=== PATIENT | female | born 1990 | race Caucasian/White ===

== ENCOUNTER 2022-12-29 08:36 | Outpatient (OUT) | payer BC, SELFPAY ==
--- NOTE | 2022-12-29 08:42 | US_ITS ---
[address] [address] Patient Name: SCOTT GOLDSMITH MRN: [id number] date: 1990 Sex: F Assigned Patient Location: [facility] Current Patient Location: Accession/Order Number: [id number] Exam Date: 12/29/2022 08:41 Report Date: 12/29/2022 10:07 At the request of: MALATHI COLLADO Procedure: US OB BPP w non-stress EXAMINATION: US OB growth, US OB BPP w non-stress HISTORY: GESTATIONAL DIABETES COMPARISON: No relevant comparison available. TECHNIQUE: Ultrasound biophysical profile was performed in the radiology department. Growth ultrasound FINDINGS: GROWTH: position: Cephalic presentation, longitudinal lie Amniotic fluid volume: 13.4 cm, normal. Largest fluid pocket 4.6 cm Heart rate: 141 bpm BPD: 8.3 cm, 33 weeks 3 days, 90% Head circumference: 30.4 cm, 33 weeks 6 days, 74% Abdominal circumference: 20.4 cm, 32 weeks 3 days, 73% Femur length: 6.2 cm, 32 weeks 0 days, 47% Estimated weight: 1990 g, 4 lbs. 6 oz., 70% Clinical age: 31 weeks 4 days Clinical KAMI: 02/26/2023 Ultrasound age: 33 weeks 0 days Ultrasound KAMI: 02/16/2023 BPP: BREATHING MOVEMENTS: 2.0 GROSS BODY MOVEMENTS: 2.0 TONE: 2.0 QUALITATIVE AMNIOTIC FLUID VOLUME: 2.0 PRESENTATION: CEPHALIC HEART RATE: 141.4 bpm H.B./min AMNIOTIC FLUID VOLUME: 13.4 cm cm GESTATIONAL AGE: 31 weeks 4 days CONCLUSION: Total biophysical profile score: 8.0 Normal interval growth Electronically authenticated by: WON SEO Date: 12/29/2022 10:07
--- NOTE | 2022-12-29 08:42 | US_ITS ---
[address] [address] Patient Name: SCOTT GOLDSMITH MRN: [id number] date: 1990 Sex: F Assigned Patient Location: [facility] Current Patient Location: Accession/Order Number: [id number] Exam Date: 12/29/2022 08:42 Report Date: 12/29/2022 10:07 At the request of: MALATHI COLLADO Procedure: US OB growth EXAMINATION: US OB growth, US OB BPP w non-stress HISTORY: GESTATIONAL DIABETES COMPARISON: No relevant comparison available. TECHNIQUE: Ultrasound biophysical profile was performed in the radiology department. Growth ultrasound FINDINGS: GROWTH: position: Cephalic presentation, longitudinal lie Amniotic fluid volume: 13.4 cm, normal. Largest fluid pocket 4.6 cm Heart rate: 141 bpm BPD: 8.3 cm, 33 weeks 3 days, 90% Head circumference: 30.4 cm, 33 weeks 6 days, 74% Abdominal circumference: 20.4 cm, 32 weeks 3 days, 73% Femur length: 6.2 cm, 32 weeks 0 days, 47% Estimated weight: 1990 g, 4 lbs. 6 oz., 70% Clinical age: 31 weeks 4 days Clinical KAMI: 02/26/2023 Ultrasound age: 33 weeks 0 days Ultrasound KAMI: 02/16/2023 BPP: BREATHING MOVEMENTS: 2.0 GROSS BODY MOVEMENTS: 2.0 TONE: 2.0 QUALITATIVE AMNIOTIC FLUID VOLUME: 2.0 PRESENTATION: CEPHALIC HEART RATE: 141.4 bpm H.B./min AMNIOTIC FLUID VOLUME: 13.4 cm cm GESTATIONAL AGE: 31 weeks 4 days CONCLUSION: Total biophysical profile score: 8.0 Normal interval growth Electronically authenticated by: WON SEO Date: 12/29/2022 10:07
== END 2022-12-29 10:24 | disposition home or self-care (01) ==
LOC: US 08:36 → FBC 08:38
PROVIDERS: Visit Provider Obstetrics & Gynecology
DX: O43.113 Circumvallate placenta, third trimester (principal); O24.419 Gestational diabetes mellitus in pregnancy, unspecified control; Z3A.33 33 weeks gestation of pregnancy
CPT/HCPCS: 59025; 76816; 76818

== ENCOUNTER 2023-01-02 08:54 | Outpatient (OUT) | payer BC, SELFPAY | END 2023-01-02 09:04 | disposition home or self-care (01) | LOC: FBCO 08:54 → FBC 08:55 | PROVIDERS: Visit Provider Obstetrics & Gynecology | DX: O99.280 Endocrine, nutritional and metabolic diseases complicating pregnancy, unspecified trimester (principal); Z3A.00 Weeks of gestation of pregnancy not specified | CPT/HCPCS: 59025 ==

== ENCOUNTER 2023-01-05 08:21 | Outpatient (OUT) | payer BC, SELFPAY ==
--- NOTE | 2023-01-05 08:36 | US_ITS ---
[address] [address] Patient Name: SCOTT GOLDSMITH MRN: [id number] date: 1990 Sex: F [place]igned Patient [place] [facility] [place] Location[place] [facility] [place] Accession/Order Number: [id number] Exam Date: 01/05/2023 08:37 Report Date: 01/05/2023 15:57 At the request of: MALATHI COLLADO Procedure: US OB BPP w non-stress EXAMINATION: US OB BPP w non-stress HISTORY: Circumvallate Placenta O43.113 COMPARISON: Ultrasound biophysical 12/29/2022 TECHNIQUE: Ultrasound biophysical profile was performed in the radiology department. BREATHING MOVEMENTS: 2.0 GROSS BODY MOVEMENTS: 2.0 TONE: 2.0 QUALITATIVE AMNIOTIC FLUID VOLUME: 2.0 PRESENTATION: Cephalic HEART RATE: 143.6 bpm bpm. AMNIOTIC FLUID VOLUME: 16.3 cm GESTATIONAL AGE: 32 weeks 4 days CONCLUSION: Total biophysical profile score 8.0. Electronically authenticated by: RODNEY ODELL Date: 01/05/2023 15:57
== END 2023-01-05 09:00 | disposition home or self-care (01) ==
LOC: FBCO 08:21 → FBC 08:22
PROVIDERS: Visit Provider Obstetrics & Gynecology
DX: O43.113 Circumvallate placenta, third trimester (principal); Z3A.32 32 weeks gestation of pregnancy
CPT/HCPCS: 59025; 59412; 76818

== ENCOUNTER 2023-01-09 08:30 | Outpatient (OUT) | payer BC, SELFPAY ==
[2023-01-09 08:54] VITALS: BP 113/72; PULSE 76
== END 2023-01-09 09:17 | disposition home or self-care (01) ==
LOC: FBCO 08:37 → FBC 08:39
PROVIDERS: Visit Provider Obstetrics & Gynecology
DX: O26.90 Pregnancy related conditions, unspecified, unspecified trimester (principal)
CPT/HCPCS: 59025

== ENCOUNTER 2023-01-12 08:44 | Outpatient (OUT) | payer BC, SELFPAY ==
--- NOTE | 2023-01-12 08:45 | US_ITS ---
[address] [address] Patient Name: SCOTT GOLDSMITH MRN: [id number] date: 1990 Sex: F Assigned Patient Location: [facility] Current Patient Location: [facility] [place] Accession/Order Number: [id number] Exam Date: 01/12/2023 08:50 Report Date: 01/12/2023 16:47 At the request of: MALATHI OCLLADO Procedure: US OB BPP w non-stress EXAMINATION: US OB BPP w non-stress HISTORY: Circumvallate Placenta in Third Trimester O43.113 COMPARISON: No relevant comparison available. TECHNIQUE: Ultrasound biophysical profile was performed in the radiology department. FINDINGS: BREATHING MOVEMENTS: 2.0 GROSS BODY MOVEMENTS: 2.0 TONE: 2.0 QUALITATIVE AMNIOTIC FLUID VOLUME: 2.0 PRESENTATION: Cephalic HEART RATE: 142.9 bpm H.B./min AMNIOTIC FLUID VOLUME: 12.3 cm cm GESTATIONAL AGE: 33 weeks 4 days CONCLUSION: Total biophysical profile score: 8.0 Electronically authenticated by: WON SEO Date: 01/12/2023 16:47
[2023-01-12 09:22] VITALS: BP 120/77; PULSE 80
== END 2023-01-12 09:52 | disposition home or self-care (01) ==
LOC: US 08:44 → FBC 08:45
PROVIDERS: Visit Provider Obstetrics & Gynecology
DX: O43.113 Circumvallate placenta, third trimester (principal); Z3A.00 Weeks of gestation of pregnancy not specified
CPT/HCPCS: 59025; 76818

== ENCOUNTER 2023-01-16 08:30 | Outpatient (OUT) | payer OTHER, SELFPAY ==
[2023-01-16 08:49] VITALS: BP 123/69; PULSE 99
== END 2023-01-16 09:19 | disposition home or self-care (01) ==
LOC: FBCO 08:47 → FBC 08:48
PROVIDERS: Visit Provider Obstetrics & Gynecology
DX: O99.280 Endocrine, nutritional and metabolic diseases complicating pregnancy, unspecified trimester (principal); E28.2 Polycystic ovarian syndrome
CPT/HCPCS: 59025

== ENCOUNTER 2023-01-19 08:30 | Outpatient (OUT) | payer OTHER, SELFPAY ==
[2023-01-19 08:51] VITALS: BP 118/74; PULSE 100
--- NOTE | 2023-01-19 09:05 | US_ITS ---
[address] [address] Patient Name: SCTOT GOLDSMITH MRN: [id number] date: 1990 Sex: F Assigned Patient Location: US Current Patient Location: US Accession/Order Number: [id number] Exam Date: 01/19/2023 09:35 Report Date: 01/19/2023 11:10 At the request of: MALATHI COLLADO Procedure: US OB BPP w non-stress EXAMINATION: US OB BPP w non-stress HISTORY: Circumvallate placenta in third trimester O43.113 COMPARISON: Ultrasound biophysical 01/12/2023 TECHNIQUE: Ultrasound biophysical profile was performed in the radiology department. BREATHING MOVEMENTS: 2.0 GROSS BODY MOVEMENTS: 2.0 TONE: 2.0 QUALITATIVE AMNIOTIC FLUID VOLUME: 2.0 PRESENTATION: Cephalic HEART RATE: 139.9 bpm bpm. AMNIOTIC FLUID VOLUME: 15.2 cm GESTATIONAL AGE: 34 weeks 4 days CONCLUSION: Total biophysical profile score 8.0. Electronically authenticated by: RODNEY ODELL Date: 01/19/2023 11:10
== END 2023-01-19 10:00 | disposition home or self-care (01) ==
LOC: US 08:44 → FBC 08:45
PROVIDERS: Visit Provider Obstetrics & Gynecology
DX: O43.113 Circumvallate placenta, third trimester (principal); Z3A.34 34 weeks gestation of pregnancy
CPT/HCPCS: 59025; 76818

== ENCOUNTER 2023-01-23 08:35 | Outpatient (OUT) | payer OTHER, SELFPAY ==
[2023-01-23 08:50] VITALS: BP 117/75; PULSE 93
== END 2023-01-23 09:14 | disposition home or self-care (01) ==
LOC: FBCO 08:42 → FBC 08:42
PROVIDERS: Visit Provider Obstetrics & Gynecology
DX: O99.280 Endocrine, nutritional and metabolic diseases complicating pregnancy, unspecified trimester (principal); E28.2 Polycystic ovarian syndrome
CPT/HCPCS: 59025

== ENCOUNTER 2023-01-26 08:30 | Outpatient (OUT) | payer OTHER, SELFPAY ==
--- NOTE | 2023-01-26 08:39 | US_ITS ---
[address] [address] Patient Name: SCOTT GOLDSMITH MRN: [id number] date: 1990 Sex: F Assigned Patient Location: [facility] Current Patient Location: Accession/Order Number: [id number] Exam Date: 01/26/2023 08:40 Report Date: 01/26/2023 15:49 At the request of: MALATHI COLLADO Procedure: US OB BPP w non-stress EXAMINATION: US OB BPP w non-stress HISTORY: Circumvallate placenta in third trimester O43.113 COMPARISON: Ultrasound biophysical 01/19/2023 TECHNIQUE: Ultrasound biophysical profile was performed in the radiology department. BREATHING MOVEMENTS: 0.0 GROSS BODY MOVEMENTS: 2.0 TONE: 2.0 QUALITATIVE AMNIOTIC FLUID VOLUME: 2.0 PRESENTATION: Cephalic HEART RATE: 153.4 bpm bpm. AMNIOTIC FLUID VOLUME: 13.5 cm GESTATIONAL AGE: 35 weeks 4 days CONCLUSION: Total biophysical profile score 6.0. Electronically authenticated by: RODNEY ODELL Date: 01/26/2023 15:49
--- NOTE | 2023-01-26 08:40 | US_ITS ---
[place] [id number] Patient Name: SCOTT GOLDSMITH MRN: [id number] date: 1990 Sex: F Assigned Patient Location: [facility] Current Patient Location: Accession/Order Number: [id number] Exam Date: 01/26/2023 08:40 Report Date: 01/26/2023 15:54 At the request of: MALATHI COLLADO Procedure: US OB growth EXAMINATION: US OB growth HISTORY: Size inconsistent with dates O26.843 COMPARISON: Ultrasound OB growth 12/29/2022 FINDINGS: Heart Rate: 153.4 bpm Number: 1.0 Position: Cephalic Amniotic Fluid Volume: 13.5 cm Maximum Vertical Pocket: 4.9 cm BIOMETRY: BPD: 9.1 cm cm; 36 weeks 6 days; 87% HC: 32.2 cmcm; 36 weeks 2 days; 36% AC: 33.8 cm cm; 37 weeks 5 days; 97% FL: 6.9 cm cm; 35 weeks 2 days; 37% EFW: 3060.9 grams; 84% FL/AC: 20.4 FL/BPD: 75.7 HC/AC: 1.0 GESTATIONAL AGE: Age by EDC: 35 weeks 4 days KAMI by EDC: 02/26/2023 Age by US: 36 weeks 4 days KAMI by US: 02/19/2023 US/US OB growth IMPRESSION: 1. Single live intrauterine with growth detailed above. 2. Abdominal circumference is at 97th percentile Electronically authenticated by: RODNEY ODELL Date: 01/26/2023 15:54
[2023-01-26 09:32] VITALS: BP 113/68; PULSE 85; RESP 16; TEMP 36.2
[2023-01-26 09:42] VITALS: BP 113/68; PULSE 85; TEMP 36.2
== END 2023-01-26 10:36 | disposition home or self-care (01) ==
LOC: US 08:36 → FBC 08:39
PROVIDERS: Visit Provider Obstetrics & Gynecology
DX: O26.843 Uterine size-date discrepancy, third trimester (principal); O43.113 Circumvallate placenta, third trimester; Z3A.36 36 weeks gestation of pregnancy
CPT/HCPCS: 76816; 76818

== ENCOUNTER 2023-01-30 08:30 | Outpatient (OUT) | payer OTHER, SELFPAY ==
[2023-01-30 08:43] VITALS: BP 125/72; PULSE 82
== END 2023-01-30 09:05 | disposition home or self-care (01) ==
LOC: FBCO 08:37 → FBC 08:38
PROVIDERS: Visit Provider Obstetrics & Gynecology
DX: O26.90 Pregnancy related conditions, unspecified, unspecified trimester (principal)
CPT/HCPCS: 59025

== ENCOUNTER 2023-01-31 20:20 | Outpatient (REF) | payer OTHER, SELFPAY | END 2023-01-31 20:21 | disposition home or self-care (01) | LOC: LAB 20:20 | PROVIDERS: Visit Provider Obstetrics & Gynecology | DX: Z34.93 Encounter for supervision of normal pregnancy, unspecified, third trimester (principal) | CPT/HCPCS: 87081; 87150; 87186 ==

== ENCOUNTER 2023-02-02 08:41 | Outpatient (OUT) | payer OTHER, SELFPAY ==
--- NOTE | 2023-02-02 08:44 | US_ITS ---
[place] [id number] Patient Name: SCOTT GOLDSMITH MRN: [id number] date: 1990 Sex: F Assigned Patient Location: [facility] Current Patient Location: Accession/Order Number: [id number] Exam Date: 02/02/2023 08:45 Report Date: 02/02/2023 16:47 At the request of: MALATHI COLLADO Procedure: US OB BPP w non-stress EXAMINATION: US OB BPP w non-stress HISTORY: Circumvallate placenta in third trimester O43.113 COMPARISON: No relevant comparison available. TECHNIQUE: Ultrasound biophysical profile was performed in the radiology department. FINDINGS: BREATHING MOVEMENTS: 2.0 GROSS BODY MOVEMENTS: 2.0 TONE: 2.0 QUALITATIVE AMNIOTIC FLUID VOLUME: 2.0 PRESENTATION: CEPHALIC HEART RATE: 142.9 bpm H.B./min AMNIOTIC FLUID VOLUME: 17.7 cm cm GESTATIONAL AGE: 36 weeks 4 days CONCLUSION: Total biophysical profile score: 8.0 Electronically authenticated by: WON SEO Date: 02/02/2023 16:47
[2023-02-02 09:16] VITALS: BP 122/76; PULSE 90
== END 2023-02-02 09:42 | disposition home or self-care (01) ==
LOC: US 08:41 → FBC 08:42
PROVIDERS: Visit Provider Obstetrics & Gynecology
DX: O43.113 Circumvallate placenta, third trimester (principal); Z3A.36 36 weeks gestation of pregnancy
CPT/HCPCS: 76818

== ENCOUNTER 2023-02-06 08:30 | Outpatient (OUT) | payer OTHER, SELFPAY ==
[2023-02-06 08:35] VITALS: BP 124/77; PULSE 116
== END 2023-02-06 09:26 | disposition home or self-care (01) ==
LOC: FBCO 08:33 → FBC 08:33
PROVIDERS: Visit Provider Obstetrics & Gynecology
DX: O43.113 Circumvallate placenta, third trimester (principal)
CPT/HCPCS: 59025

== ENCOUNTER 2023-02-09 08:26 | Outpatient (OUT) | payer OTHER, SELFPAY ==
[2023-02-09 08:38] VITALS: BP 131/74; PULSE 90
--- NOTE | 2023-02-09 08:41 | US_ITS ---
[address] [address] Patient Name: SCOTT GOLDSMITH MRN: [id number] date: 1990 Sex: F Assigned Patient Location: [facility] Current Patient Location: Accession/Order Number: [id number] Exam Date: 02/09/2023 09:05 Report Date: 02/09/2023 20:42 At the request of: MALATHI COLLADO Procedure: US OB BPP w non-stress EXAMINATION: US OB BPP w non-stress HISTORY: Circumvallate placenta in third trimester O43.113 COMPARISON: No relevant comparison available. TECHNIQUE: Ultrasound biophysical profile was performed in the radiology department. non-reactive stress testing was performed by nursing staff in the birthing center. FINDINGS: BREATHING MOVEMENTS: 0.0 GROSS BODY MOVEMENTS: 2.0 TONE: 2.0 QUALITATIVE AMNIOTIC FLUID VOLUME: 2.0 PRESENTATION: CEPHALIC HEART RATE: 133.7 bpm H.B./min AMNIOTIC FLUID VOLUME: 14.5 cm cm GESTATIONAL AGE: 37 weeks 4 days CONCLUSION: Total biophysical profile score: 6.0 Electronically authenticated by: WON SEO Date: 02/09/2023 20:42
== END 2023-02-09 09:45 | disposition home or self-care (01) ==
LOC: US 08:26 → FBC 08:27
PROVIDERS: Visit Provider Obstetrics & Gynecology
DX: O43.113 Circumvallate placenta, third trimester (principal); Z3A.37 37 weeks gestation of pregnancy
CPT/HCPCS: 76818

== ENCOUNTER 2023-02-10 08:35 | Outpatient (OUT) | payer OTHER, SELFPAY ==
--- NOTE | 2023-02-10 08:39 | US_ITS ---
[address] [address] Patient Name: SCOTT GOLDSMITH MRN: [id number] date: 1990 Sex: F Assigned Patient Location: [facility] Current Patient Location: Accession/Order Number: [id number] Exam Date: 02/10/2023 08:45 Report Date: 02/10/2023 15:04 At the request of: MALATHI COLLADO Procedure: US OB BPP w non-stress EXAMINATION: US OB BPP w non-stress HISTORY: repeat COMPARISON: Ultrasound biophysical 02/09/2023 TECHNIQUE: Ultrasound biophysical profile was performed in the radiology department. BREATHING MOVEMENTS: 0.0 GROSS BODY MOVEMENTS: 2.0 TONE: 2.0 QUALITATIVE AMNIOTIC FLUID VOLUME: 2.0 PRESENTATION: CEPHALIC HEART RATE: 163.6 bpm bpm. AMNIOTIC FLUID VOLUME: 19.4 cm GESTATIONAL AGE: 37 weeks 5 days CONCLUSION: Total biophysical profile score 6.0. Electronically authenticated by: RODNEY ODELL Date: 02/10/2023 15:04
[2023-02-10 09:31] VITALS: BP 125/82; PULSE 88
== END 2023-02-10 10:03 | disposition home or self-care (01) ==
LOC: FBCO 08:40 → FBC 08:40
PROVIDERS: Visit Provider Obstetrics & Gynecology
DX: Z34.93 Encounter for supervision of normal pregnancy, unspecified, third trimester (principal); Z3A.37 37 weeks gestation of pregnancy
CPT/HCPCS: 59025; 76818

== ENCOUNTER 2023-02-12 12:47 | Outpatient (OUT) | payer OTHER, SELFPAY ==
--- NOTE | 2023-02-12 12:58 | US_ITS ---
[address] [address] Patient Name: SCOTT GOLDSMITH MRN: [id number] date: 1990 Sex: F Assigned Patient Location: [facility] Current Patient Location: [facility] [place] Accession/Order Number: [id number] Exam Date: 02/12/2023 13:05 Report Date: 02/13/2023 15:52 At the request of: SARITA ELIZABETH Procedure: US OB BPP w non-stress EXAMINATION: US OB BPP w non-stress HISTORY: CIRCUMVALLATE PLACENTA COMPARISON: Ultrasound OB biophysical 02/10/2023 TECHNIQUE: Ultrasound biophysical profile was performed in the radiology department. BREATHING MOVEMENTS: 2.0 GROSS BODY MOVEMENTS: 2.0 TONE: 2.0 QUALITATIVE AMNIOTIC FLUID VOLUME: 2.0 PRESENTATION: CEPHALIC HEART RATE: 147.5 bpm bpm. AMNIOTIC FLUID VOLUME: 17.0 cm GESTATIONAL AGE: 38 weeks 0 days CONCLUSION: Total biophysical profile score 8.0. Electronically authenticated by: RODNEY ODELL Date: 02/13/2023 15:52
[2023-02-12 13:41] VITALS: BP 132/80; PULSE 88
== END 2023-02-12 14:00 | disposition home or self-care (01) ==
LOC: US 12:48 → FBC 12:49
PROVIDERS: Visit Provider Obstetrics & Gynecology
DX: O43.113 Circumvallate placenta, third trimester (principal); Z3A.38 38 weeks gestation of pregnancy
CPT/HCPCS: 76818

== ENCOUNTER 2023-02-16 08:30 | Outpatient (OUT) | payer OTHER, SELFPAY ==
--- NOTE | 2023-02-16 08:43 | US_ITS ---
[place] [id number] Patient Name: SCOTT GOLDSMITH MRN: [id number] date: 1990 Sex: F Assigned Patient Location: [facility] Current Patient Location: Accession/Order Number: [id number] Exam Date: 02/16/2023 08:47 Report Date: 02/16/2023 18:45 At the request of: MALATHI COLLADO Procedure: US OB BPP w non-stress EXAMINATION: US OB BPP w non-stress HISTORY: CIRCUMVALLATE PLACENTA IN THIRD TRIMESTER O43.113 COMPARISON: Ultrasound OB biophysical 02/12/2023 TECHNIQUE: Ultrasound biophysical profile was performed in the radiology department. BREATHING MOVEMENTS: 2.0 GROSS BODY MOVEMENTS: 2.0 TONE: 2.0 QUALITATIVE AMNIOTIC FLUID VOLUME: 2.0 PRESENTATION: CEPHALIC HEART RATE: 144.4 bpm bpm. AMNIOTIC FLUID VOLUME: 16.1 cm GESTATIONAL AGE: 38 weeks 4 days CONCLUSION: Total biophysical profile score 8.0. Electronically authenticated by: RODNEY ODELL Date: 02/16/2023 18:45
[2023-02-16 09:28] VITALS: BP 127/76; PULSE 85
== END 2023-02-16 09:58 ==
LOC: US 08:45 → FBC 08:46
PROVIDERS: Visit Provider Obstetrics & Gynecology
DX: O43.113 Circumvallate placenta, third trimester (principal); Z3A.38 38 weeks gestation of pregnancy
CPT/HCPCS: 76818

== ENCOUNTER 2023-02-19 04:55 | Inpatient (IN) | payer OTHER, SELFPAY ==
[2023-02-19] VITALS (65 sets, daily range): BP systolic 83–156; BP diastolic 47–89; PULSE 78–130; RESP 16–18; TEMP 35.9–37.2; O2SAT 97
[2023-02-19 05:28] LABS: Hematocrit 37.8 % (36.0-48.0); Hemoglobin 12.9 g/dL (12.0-16.0); Mean Corpuscular HGB Conc 34.1 g/dL (29.9-35.2); Mean Corpuscular Hemoglobin 28.2 pg (26.7-34.0); Mean Corpuscular Volume 82.7 fL (81.0-99.0); Mean Platelet Volume 11.8 fL (9.5-13.5); Platelet Count 142 10^3/uL (150-450); Red Blood Count 4.57 10^6/uL (4.20-5.40); Red Cell Distribution Width 13.9 % (11.0-15.0); White Blood Count 11.3 10^3/uL (4.0-11.0)
[2023-02-19 05:39] LABS: Amphetamine Screen Urine NEGATIVE (NEGATIVE); Barbiturates Screen Urine NEGATIVE (NEGATIVE); Benzodiazepines Screen Urine NEGATIVE (NEGATIVE); Buprenorphine Screen Urine NEGATIVE (NEGATIVE); Cannabinoid Screen Urine NEGATIVE (NEGATIVE); Cocaine Screen Urine NEGATIVE (NEGATIVE); Methadone Screen Urine NEGATIVE (NEGATIVE); Methamphetamines Screen Urine NEGATIVE (NEGATIVE); Opiate Screen Urine NEGATIVE (NEGATIVE); Oxycodone Screen Urine NEGATIVE (NEGATIVE); Phencyclidine Screen Urine NEGATIVE (NEGATIVE); Tricyclic Antidepressant Urine NEGATIVE (NEGATIVE)
[2023-02-19] MEDS: AMPICILLIN SODIUM 2,000 MG in 0.9 % SODIUM CHLORIDE 100 ML 100 MG IV (05:41)
[2023-02-19] MEDS: 0.9 % SODIUM CHLORIDE 1,000 ML 125 ML IV ×2 (05:41→12:22)
[2023-02-19] MEDS: OXYTOCIN 10 UNIT in 0.9 % SODIUM CHLORIDE 500 ML 6.012 UNIT IV (05:46)
[2023-02-19] MEDS: ONDANSETRON PF 4 MG/2 ML VIAL IV (07:27)
--- NOTE | 2023-02-19 09:33 | P.ON_ITS ---
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 She was prepped and draped in the normal sterile fashion. A Pfannenstiel skin incision was then made 2 cm above the symphysis pubis and carried down to underlying rectus fascia using a Bovie. The fascia was incised in the midline and extended laterally using Morrison scissors. Two Ceci clamps were placed on the superior aspect of the fascia and dissected off the underlying rectus muscles. The same was performed on the inferior aspect as well. The muscles were then in the midline. Perit oneum was identified and entered bluntly. The peritoneum was then extended superiorly and inferiorly with good visualization of the bladder. The bladder blade was inserted. A low transverse incision was made on the patient's uterus and extended laterally digitally. The was then delivered atraumatically after the bladder blade was removed in the cephalic position. The cord was clamped and cut. Cord blood was obtained. The was handed off to awaiting team. The patient's placenta was spontaneously delivered. The uterus was then exteriorized. The uterus was cleared of all clots and debris. The bladder blade was reinserted. The patient's uterine incision was closed using #0 Vicryl in a running lock fashion. Excellent hemostasis was assured. The uterus was then returned to the patient's abdomen. The patient's abdomen was copiously irrigated using warm saline. Peritoneal gutters were cleared of all clots and debris. Again excellent hemostasis was assured. The patient's peritoneum was closed using 3-0 Vicryl in a running fashion. The patient's fascia was closed using #0 Vicryl in a running fashion. The patient's skin was closed using 4-0 Vicryl subcuticularly. The patient tolerated the procedure well. Sponge, lap, and needle counts were correct x2. The patient was taken to the Recovery Room in stable condition. Anesthesia: spinal Surgeon: Hernando Ward Supervisor [employer] Education: DEEPTHI STATON Estimated blood loss (mL): 650 Pathology: other (placenta) Condition: stable Disposition: floor
[2023-02-19] MEDS: AMPICILLIN SODIUM 1,000 MG in 0.9 % SODIUM CHLORIDE 50 ML 100 MG IV (10:30)
[2023-02-19] MEDS: FENTANYL CITRATE/PF 100 MCG/2 ML VIAL EPIDURAL ×2 (10:30→10:35)
[2023-02-19] MEDS: ROPIVACAINE HCL/PF 400 MG/200 ML PREMIX 10 MG EPIDURAL (10:32)
[2023-02-19] MEDS: 0.9 % SODIUM CHLORIDE 1,000 ML 1000 ML IV (11:10)
[2023-02-19] MEDS: EPHEDRINE SULFATE 50 MG/ML VIAL IV (11:11)
[2023-02-19] MEDS: LIDOCAINE HCL 2% PF 100 MG/5 ML VIAL INJ (11:11)
--- NOTE | 2023-02-19 12:38 | PC.NURSE ---
1057 Ephedrine 1 mg given, pt nauseous and vomiting
--- NOTE | 2023-02-19 12:39 | PC.NURSE ---
1122 sve 7 cm 100% -1
--- NOTE | 2023-02-19 12:40 | PC.NURSE ---
1124 ephedrine 2nd dose given, pt again vomiting with blood pressure drop
--- NOTE | 2023-02-19 12:41 | PC.NURSE ---
1142 third dose ephedrine given
--- NOTE | 2023-02-19 12:42 | PC.NURSE ---
1148 sve unchanged, feeling increased
--- NOTE | 2023-02-19 12:43 | PC.NURSE ---
1203 additional dose of ephedrine given
--- NOTE | 2023-02-19 12:45 | PC.NURSE ---
1207 sve done, pt continues to feel increased pressure
--- NOTE | 2023-02-19 12:46 | PC.NURSE ---
1210dr genaro notified of sve per phone
--- NOTE | 2023-02-19 12:47 | PC.NURSE ---
1223 dr lam at bedside and [facility] [place]
--- NOTE | 2023-02-19 12:47 | PC.NURSE ---
1232 16 fr reyes placed for large amount dark yellow urine
--- NOTE | 2023-02-19 16:38 | PM.OBPRCVD ---
Procedure Intrapartal events: None Induction method: artificial rupture of membranes Delivery augmentation: rupture of membranes and pitocin Delivery monitor: external FHT and external uterine Route of delivery: Episiotomy Description: right mediolateral Laceration description: perineal - 2nd degree Delivery repair: Vicryl Estimated blood loss (mL): 250 Anesthesia type: Epidural Disposition: floor Infant Delivery date: 02/19/23 Gender: male presentation: vertex Placental delivery description: Spontaneous cord description: 3 Vessels and Nuchal Cord
[2023-02-19] MEDS: IBUPROFEN 600 MG TABLET PO (18:44)
--- NOTE | 2023-02-19 21:13 | PC.NURSE ---
1919 curriculum writer assisted patient to bathroom for the first time. Tolerated well denies complaints of feeling dizzy or lightheaded. Changed bedding and refreshed water.
[2023-02-20] MEDS: IBUPROFEN 600 MG TABLET PO ×3 (02:28→16:15)
--- NOTE | 2023-02-20 03:55 | PC.NURSE ---
0355: pt calls RN to bedside due to IV coming out. pt explains that she hit the IV on the furniture and the IV came out. RN holds pressure on IV site and inspects IV catheter prior to throwing it in sharps container. IV intact
[2023-02-20 06:08] LABS: Basophils Percent Auto 0.2 % (0.2-2.0); Eosinophils Percent Auto 0.3 % (0.9-7.0); Hematocrit 31.7 % (36.0-48.0); Hemoglobin 10.4 g/dL (12.0-16.0); Immature Granulocytes Abs Auto 0.05 10^3/uL (0.00-0.03); Immature Granulocytes Pct Auto 0.4 % (0.0-0.5); Lymphocytes Absolute Auto 1.8 10^3/uL (1.2-3.8); Lymphocytes Percent Auto 14.1 % (20.5-60.0); Mean Corpuscular HGB Conc 32.8 g/dL (29.9-35.2); Mean Corpuscular Hemoglobin 28.3 pg (26.7-34.0); Mean Corpuscular Volume 86.1 fL (81.0-99.0); Mean Platelet Volume 11.4 fL (9.5-13.5); Monocytes Absolute Auto 0.7 10^3/uL (0.3-0.8); Monocytes Percent Auto 5.5 % (1.7-12.0); Neutrophils Absolute Auto 9.9 10^3/uL (1.4-6.5); Neutrophils Percent Auto 79.5 % (43.0-75.0); Platelet Count 189 10^3/uL (150-450); Red Blood Count 3.68 10^6/uL (4.20-5.40); White Blood Count 12.4 10^3/uL (4.0-11.0)
[2023-02-20 08:37] VITALS: BP 116/60; PULSE 87
[2023-02-20] MEDS: DOCUSATE SODIUM 100 MG CAPSULE PO ×2 (08:42→20:07)
--- NOTE | 2023-02-20 09:58 | PC.NURSE ---
199902/19/23 Up to una ACUNA reviewed, given fresh ice pack and uses home witch dinorah and spray, bedlinens changed
--- NOTE | 2023-02-20 10:02 | PC.NURSE ---
02/19/232199 hand expresses breast milk, RN discusses PCOS and lack of breast changes and pt and RN plan to offer breast, hand express (first 24 hrs then switch to pump), feed any milk achieved from breast then supplement with formula if baby still hungry
--- NOTE | 2023-02-20 13:08 | PC.NURSE ---
LC into room and education on complete. Pt attended BF class prior to delivery. Known DX of PCOS with minimal breast size changes. Did have darkened areola and growth in nipples. Has started given supplemental formula as was not sure how much the baby was getting Reviewed milk making as a process and 4 days post delivery average day of milk coming in Parents prefer to continue offering supplement as this makes them more comfortable. LC to support family choices and support / milk making as parents desire.
[2023-02-20 16:06] VITALS: BP 122/71; PULSE 87
[2023-02-20 16:31] VITALS: RESP 17; TEMP 37
[2023-02-20 18:14] LABS: Basophils Percent Auto 0.4 % (0.2-2.0); Eosinophils Absolute Auto 0.1 10^3/uL (0.0-0.7); Eosinophils Percent Auto 1.2 % (0.9-7.0); Hematocrit 31.1 % (36.0-48.0); Hemoglobin 10.3 g/dL (12.0-16.0); Immature Granulocytes Abs Auto 0.04 10^3/uL (0.00-0.03); Immature Granulocytes Pct Auto 0.4 % (0.0-0.5); Lymphocytes Absolute Auto 1.7 10^3/uL (1.2-3.8); Lymphocytes Percent Auto 17.5 % (20.5-60.0); Mean Corpuscular HGB Conc 33.1 g/dL (29.9-35.2); Mean Corpuscular Hemoglobin 28.1 pg (26.7-34.0); Mean Platelet Volume 11.1 fL (9.5-13.5); Monocytes Absolute Auto 0.6 10^3/uL (0.3-0.8); Monocytes Percent Auto 6.3 % (1.7-12.0); Neutrophils Absolute Auto 7.2 10^3/uL (1.4-6.5); Neutrophils Percent Auto 74.2 % (43.0-75.0); Platelet Count 205 10^3/uL (150-450); Red Blood Count 3.66 10^6/uL (4.20-5.40); Red Cell Distribution Width 14.2 % (11.0-15.0); White Blood Count 9.8 10^3/uL (4.0-11.0)
--- NOTE | 2023-02-20 19:13 | W.PC.ACHO ---
Registration Status: ADM IN Primary Language: Kiswahili Preferred Language: Kiswahili 1911 report given. care relinquished. Active Medications Generic Name Dose Route Start Last Admin Trade Name Freq PRN Reason Stop Dose Admin Acetaminophen 650 mg 02/19/23 16:35 Acetaminophen 325 Mg Tablet PO Q6H PRN Mild Pain Al Hydroxide/Mg Hydroxide 2,400 mg 02/19/23 09:35 Magnesium Hydroxide 2,400 Mg/10 Ml Oral.Susp PO Q6H PRN Dyspepsia Al Hydroxide/Mg Hydroxide 2,400 mg 02/19/23 16:35 Magnesium Hydroxide 2,400 Mg/10 Ml Oral.Susp PO Q6H PRN Dyspepsia Benzocaine/Menthol 1 applic 02/19/23 16:35 02/19/23 20:06 Benzocaine/Menthol 85 Gram Bottle TOPICAL 1 applic DIRECTED PRN Administration Pain Carboprost Tromethamine 250 mcg 02/19/23 05:04 Carboprost Tromethamine 250 Mcg/Ml 1 Ml Vial IM Q15M PRN Bleeding Diphenhydramine HCl 25 mg 02/19/23 09:42 Diphenhydramine Hcl 50 Mg/Ml (1ml) Vial IV Q6H PRN Itching Docusate Sodium 100 mg 02/20/23 09:00 Docusate Sodium 100 Mg Capsule PO BID RONEN Docusate Sodium 100 mg 02/20/23 09:00 02/20/23 08:42 Docusate Sodium 100 Mg Capsule PO 100 mg BID RONEN Administration Ephedrine Sulfate 5 mg 02/19/23 09:42 02/19/23 11:11 Ephedrine Sulfate 50 Mg/Ml Vial IV 5 mg Q5M PRN Administration Blood Pressure - Low Fentanyl Citrate 100 mcg 02/19/23 09:42 02/19/23 10:35 Fentanyl Citrate/Pf 100 Mcg/2 Ml Vial EPIDURAL 100 mcg Q4H PRN Administration Pain Fentanyl Citrate 100 mcg 02/19/23 09:53 02/19/23 10:30 Fentanyl Citrate/Pf 100 Mcg/2 Ml Vial EPIDURAL 100 mcg Q4H PRN Administration Pain Sodium Chloride 1,000 mls @ 125 mls/hr 02/19/23 05:15 02/19/23 12:22 Sodium Chloride 0.9% 1,000 Ml IV 125 mls/hr .Q8H RONEN Administration Oxytocin 10 unit/ Sodium 501 mls @ 6.012 mls/hr 02/19/23 05:15 02/19/23 05:46 Chloride IV 2 milliunit/min Q24H [facility] 6.012 mls/hr Administration 2 MILLIUNIT/MIN Ampicillin 1,000 mg/ Sodium 50 mls @ 100 mls/hr 02/19/23 05:15 02/19/23 10:30 Chloride IV 100 ml/hr Q4H RONEN 100 mls/hr Administration Sodium Chloride 1,000 mls @ 125 mls/hr 02/19/23 09:45 Sodium Chloride 0.9% 1,000 Ml IV .Q8H [facility] Ropivacaine/Sodium Chloride 400 mg in 200 mls @ 6 mls/hr 02/19/23 09:45 02/19/23 10:32 Naropin 0.2% 400 Mg/200 Ml Bag EPIDURAL 10 ml/hr Q24H [facility] 10 mls/hr Administration Ropivacaine/Sodium Chloride 400 mg in 200 mls @ 6 mls/hr 02/19/23 10:00 Naropin 0.2% 400 Mg/200 Ml Bag EPIDURAL Q24H [facility] Ibuprofen 800 mg 02/19/23 09:35 Ibuprofen 400 Mg Tablet PO Q8H PRN Pain Ibuprofen 600 mg 02/19/23 16:35 02/20/23 16:15 Ibuprofen 600 Mg Tablet PO 600 mg Q6H PRN Administration Moderate Pain Ketorolac Tromethamine 30 mg 02/19/23 09:42 Ketorolac Tromethamine 30 Mg/Ml Vial IVP Q6H PRN Pain Lidocaine 5 ml 02/19/23 05:04 Lidocaine Viscous 2% 15 Ml Topical Solution TOPICAL DIRECTED PRN Pain Lidocaine 1 ml 02/19/23 05:04 Lidocaine Hcl 1% 200 Mg/20 Ml Mdv INJ DIRECTED PRN Pain Lidocaine 5 ml 02/19/23 09:42 02/19/23 11:11 Lidocaine Hcl 2% Pf 100 Mg/5 Ml Vial INJ 5 ml Q1H PRN Administration Epidural Methylergonovine Maleate 0.2 mg 02/19/23 05:04 Methylergonovine Maleate 0.2 Mg Tablet PO Q4H PRN Uterine Contractility/Contract Methylergonovine Maleate 0.2 mg 02/19/23 05:04 Methylergonovine Maleate 0.2 Mg/Ml Ampule IM ONCE PRN Uterine Contractility/Contract Misoprostol 600 mcg 02/19/23 05:04 Misoprostol 100 Mcg Tablet PO ONCE PRN Uterine Bleeding Misoprostol 800 mcg 02/19/23 05:04 Misoprostol 100 Mcg Tablet SL ONCE PRN Uterine Bleeding Misoprostol 1,000 mcg 02/19/23 05:04 Misoprostol 100 Mcg Tablet SC ONCE PRN Uterine Bleeding Nalbuphine HCl 10 mg 02/19/23 05:04 Nalbuphine Hcl 10 Mg/Ml Ampule IV Q3H PRN Pain Ondansetron HCl 4 mg 02/19/23 05:04 02/19/23 07:27 Ondansetron Pf 4 Mg/2 Ml Vial IV 4 mg Q6H PRN Administration Nausea And Vomiting Ondansetron HCl 4 mg 02/19/23 05:04 Ondansetron 4 Mg Rapdis Tablet SL Q6H PRN Nausea And Vomiting Ondansetron HCl 4 mg 02/19/23 09:35 Ondansetron Pf 4 Mg/2 Ml Vial IV Q6H PRN Nausea And Vomiting Ondansetron HCl 4 mg 02/19/23 09:35 Ondansetron 4 Mg Rapdis Tablet PO Q6H PRN Nausea And Vomiting Oxycodone/Acetaminophen 2 each 02/19/23 09:35 Oxycodone Hcl/Acetaminophen 5-325 Mg Tablet PO Q4H PRN Pain Oxycodone/Acetaminophen 1 each 02/19/23 09:35 Oxycodone Hcl/Acetaminophen 5-325 Mg Tablet PO Q4H PRN Pain Oxytocin 10 unit 02/19/23 05:04 Oxytocin 100 Unit/10 Ml Vial IM ONCE PRN Uterine Bleeding Senna 17.2 mg 02/19/23 20:00 Sennosides 8.6 Mg Tablet PO QHS PRN Constipation Senna 17.2 mg 02/19/23 20:00 Sennosides 8.6 Mg Tablet PO QHS PRN Constipation Simethicone 80 mg 02/19/23 09:35 Simethicone 80 Mg Tab.Chew PO QID PRN Abdominal Distention Simethicone 80 mg 02/19/23 16:35 Simethicone 80 Mg Tab.Chew PO QID PRN Abdominal Distention Temazepam 15 mg 02/19/23 20:00 Temazepam 15 Mg Capsule PO BEDTIME PRN Sleep Witch Barbara/Glycerin 1 each 02/19/23 16:35 Glycerin/Witch Barbara 1 Each Jar TOPICAL DIRECTED PRN Pain Respiratory Lung sounds [Throughout] clear Pulse Oximetry 97 Oxygen Delivery Method Room Air Cardiology Heart Sounds Regular Renal Bladder Pattern Continent
--- NOTE | 2023-02-20 19:24 | PC.NURSE ---
Patient sitting up in bed, denies any needs at this time.
[2023-02-20] MEDS: ONDANSETRON 4 MG RAPDIS TABLET PO (21:59)
[2023-02-21 00:05] VITALS: BP 118/70; PULSE 85
[2023-02-21] MEDS: IBUPROFEN 600 MG TABLET PO ×2 (00:10→08:40)
[2023-02-21 00:24] VITALS: RESP 16
[2023-02-21 00:33] VITALS: TEMP 36.6
--- NOTE | 2023-02-21 07:13 | W.PC.ACHO ---
Registration Status: ADM IN Primary Language: Estonian Preferred Language: Estonian Active Medications Report given to Marita Gaxiola RN Generic Name Dose Route Start Last Admin Trade Name Freq PRN Reason Stop Dose Admin Acetaminophen 650 mg 02/19/23 16:35 Acetaminophen 325 Mg Tablet PO Q6H PRN Mild Pain Al Hydroxide/Mg Hydroxide 2,400 mg 02/19/23 09:35 Magnesium Hydroxide 2,400 Mg/10 Ml Oral.Susp PO Q6H PRN Dyspepsia Al Hydroxide/Mg Hydroxide 2,400 mg 02/19/23 16:35 Magnesium Hydroxide 2,400 Mg/10 Ml Oral.Susp PO Q6H PRN Dyspepsia Benzocaine/Menthol 1 applic 02/19/23 16:35 02/19/23 20:06 Benzocaine/Menthol 85 Gram Bottle TOPICAL 1 applic DIRECTED PRN Administration Pain Carboprost Tromethamine 250 mcg 02/19/23 05:04 Carboprost Tromethamine 250 Mcg/Ml 1 Ml Vial IM Q15M PRN Bleeding Diphenhydramine HCl 25 mg 02/19/23 09:42 Diphenhydramine Hcl 50 Mg/Ml (1ml) Vial IV Q6H PRN Itching Docusate Sodium 100 mg 02/20/23 09:00 Docusate Sodium 100 Mg Capsule PO BID RONEN Docusate Sodium 100 mg 02/20/23 09:00 02/20/23 20:07 Docusate Sodium 100 Mg Capsule PO 100 mg BID RONEN Administration Ephedrine Sulfate 5 mg 02/19/23 09:42 02/19/23 11:11 Ephedrine Sulfate 50 Mg/Ml Vial IV 5 mg Q5M PRN Administration Blood Pressure - Low Fentanyl Citrate 100 mcg 02/19/23 09:42 02/19/23 10:35 Fentanyl Citrate/Pf 100 Mcg/2 Ml Vial EPIDURAL 100 mcg Q4H PRN Administration Pain Fentanyl Citrate 100 mcg 02/19/23 09:53 02/19/23 10:30 Fentanyl Citrate/Pf 100 Mcg/2 Ml Vial EPIDURAL 100 mcg Q4H PRN Administration Pain Sodium Chloride 1,000 mls @ 125 mls/hr 02/19/23 05:15 02/19/23 12:22 Sodium Chloride 0.9% 1,000 Ml IV 125 mls/hr .Q8H RONEN Administration Oxytocin 10 unit/ Sodium 501 mls @ 6.012 mls/hr 02/19/23 05:15 02/19/23 05:46 Chloride IV 2 milliunit/min Q24H [facility] 6.012 mls/hr Administration 2 MILLIUNIT/MIN Ampicillin 1,000 mg/ Sodium 50 mls @ 100 mls/hr 02/19/23 05:15 02/19/23 10:30 Chloride IV 100 ml/hr Q4H RONEN 100 mls/hr Administration Sodium Chloride 1,000 mls @ 125 mls/hr 02/19/23 09:45 Sodium Chloride 0.9% 1,000 Ml IV .Q8H [facility] Ropivacaine/Sodium Chloride 400 mg in 200 mls @ 6 mls/hr 02/19/23 09:45 02/19/23 10:32 Naropin 0.2% 400 Mg/200 Ml Bag EPIDURAL 10 ml/hr Q24H [facility] 10 mls/hr Administration Ropivacaine/Sodium Chloride 400 mg in 200 mls @ 6 mls/hr 02/19/23 10:00 Naropin 0.2% 400 Mg/200 Ml Bag EPIDURAL Q24H [facility] Ibuprofen 800 mg 02/19/23 09:35 Ibuprofen 400 Mg Tablet PO Q8H PRN Pain Ibuprofen 600 mg 02/19/23 16:35 02/21/23 00:10 Ibuprofen 600 Mg Tablet PO 600 mg Q6H PRN Administration Moderate Pain Ketorolac Tromethamine 30 mg 02/19/23 09:42 Ketorolac Tromethamine 30 Mg/Ml Vial IVP Q6H PRN Pain Lidocaine 5 ml 02/19/23 05:04 Lidocaine Viscous 2% 15 Ml Topical Solution TOPICAL DIRECTED PRN Pain Lidocaine 1 ml 02/19/23 05:04 Lidocaine Hcl 1% 200 Mg/20 Ml Mdv INJ DIRECTED PRN Pain Lidocaine 5 ml 02/19/23 09:42 02/19/23 11:11 Lidocaine Hcl 2% Pf 100 Mg/5 Ml Vial INJ 5 ml Q1H PRN Administration Epidural Methylergonovine Maleate 0.2 mg 02/19/23 05:04 Methylergonovine Maleate 0.2 Mg Tablet PO Q4H PRN Uterine Contractility/Contract Methylergonovine Maleate 0.2 mg 02/19/23 05:04 Methylergonovine Maleate 0.2 Mg/Ml Ampule IM ONCE PRN Uterine Contractility/Contract Misoprostol 600 mcg 02/19/23 05:04 Misoprostol 100 Mcg Tablet PO ONCE PRN Uterine Bleeding Misoprostol 800 mcg 02/19/23 05:04 Misoprostol 100 Mcg Tablet SL ONCE PRN Uterine Bleeding Misoprostol 1,000 mcg 02/19/23 05:04 Misoprostol 100 Mcg Tablet NC ONCE PRN Uterine Bleeding Nalbuphine HCl 10 mg 02/19/23 05:04 Nalbuphine Hcl 10 Mg/Ml Ampule IV Q3H PRN Pain Ondansetron HCl 4 mg 02/19/23 05:04 02/19/23 07:27 Ondansetron Pf 4 Mg/2 Ml Vial IV 4 mg Q6H PRN Administration Nausea And Vomiting Ondansetron HCl 4 mg 02/19/23 05:04 Ondansetron 4 Mg Rapdis Tablet SL Q6H PRN Nausea And Vomiting Ondansetron HCl 4 mg 02/19/23 09:35 Ondansetron Pf 4 Mg/2 Ml Vial IV Q6H PRN Nausea And Vomiting Ondansetron HCl 4 mg 02/19/23 09:35 02/20/23 21:59 Ondansetron 4 Mg Rapdis Tablet PO 4 mg Q6H PRN Administration Nausea And Vomiting Oxycodone/Acetaminophen 2 each 02/19/23 09:35 Oxycodone Hcl/Acetaminophen 5-325 Mg Tablet PO Q4H PRN Pain Oxycodone/Acetaminophen 1 each 02/19/23 09:35 Oxycodone Hcl/Acetaminophen 5-325 Mg Tablet PO Q4H PRN Pain Oxytocin 10 unit 02/19/23 05:04 Oxytocin 100 Unit/10 Ml Vial IM ONCE PRN Uterine Bleeding Senna 17.2 mg 02/19/23 20:00 Sennosides 8.6 Mg Tablet PO QHS PRN Constipation Senna 17.2 mg 02/19/23 20:00 Sennosides 8.6 Mg Tablet PO QHS PRN Constipation Simethicone 80 mg 02/19/23 09:35 Simethicone 80 Mg Tab.Chew PO QID PRN Abdominal Distention Simethicone 80 mg 02/19/23 16:35 Simethicone 80 Mg Tab.Chew PO QID PRN Abdominal Distention Temazepam 15 mg 02/19/23 20:00 Temazepam 15 Mg Capsule PO BEDTIME PRN Sleep Witch Barbara/Glycerin 1 each 02/19/23 16:35 Glycerin/Witch Barbara 1 Each Jar TOPICAL DIRECTED PRN Pain Respiratory Lung sounds [Throughout] clear Lung sounds [Throughout] clear Oxygen Delivery Method Room Air Cardiology Heart Sounds Regular Heart Sounds Regular Bowels Date of Last Bowel Movement 02/20/23 Renal Bladder Pattern Continent Bladder Pattern Continent
[2023-02-21] MEDS: DOCUSATE SODIUM 100 MG CAPSULE PO (08:41)
[2023-02-21 08:43] VITALS: BP 118/74; PULSE 77
[2023-02-21 08:45] VITALS: RESP 16; TEMP 36.7
--- NOTE | 2023-02-21 09:53 | PC.NURSE ---
mother baby care, purple cry and 7 ways to reduce sids videos in for pt to view.
--- NOTE | 2023-02-21 12:34 | P.DS_ITS ---
DS: Providers Provider Date of admission: 02/19/23 04:55 Primary care physician: Non-Staff Physician, Admitting clinician: Hernando Ward Consults: 02/19/23 Consult to Anesthesiology Routine Consulting Provider: Hospitalist Attending physician on discharge: Loida Francois Anticipated date of discharge: 02/21/23 DS: Diagnosis Discharge Diagnosis (1) Normal vaginal delivery: Assessment and plan: CLINICAL EXAM NON FOCAL. NORMAL VSS. DISCHARGE INSTRUCTIONS GIVEN WITH STATED UNDERSTANDING. FOLLOW UP IN SIX WEEKS FOR POST EXAM. PELVIC REST FOR SIX WEEKS. CALL FOR PROBLEM OR CONCERN. GENERAL COVID AND RSV PRECAUTIONS GIVEN OB - DS: Summary Hospital Course Hospital Course: UNCOMPLICATED Complications complications: none Infant Delivery method: spontaneous vaginal delivery Gender: male Discharge plan: home Status at Discharge Functional status at discharge: independent ambulation Overall status at discharge: patient is back to baseline Time Spent with Patient Time attestation: Total time spent providing and/or coordinating discharge services: Time spent: less than 30 minutes Specific discharge activities: PELVIC REST SIX WEEKS, ONLY LIFT BABY, NO SWIMMING FOR 4 WEEKS, CALL FOR PROBLEM OR CONCERN, SPORTS BRA 06/02 WITH NO BREAST STIMULATION BY HAND OR SHOWER IF NOT BREAST FEEDING Exam Constitutional Vital Signs, click to edit/add: Last Vital Signs Temp 98.1 F 02/21/23 08:45 Pulse 77 02/21/23 08:43 Resp 16 02/21/23 08:45 BP 118/74 02/21/23 08:43 Pulse Ox 97 02/19/23 19:31 O2 Del Method Room Air 02/21/23 00:24 Documenting provider has reviewed patient's vital signs: yes Common normals: no apparent distress, oriented x3, no limitations and healthy appearing HENSD Common normals: normocephalic and head/scalp atraumatic Eye Common normals: PERRL Pupil: accommodation reflex normal Neck & C-Spine Common normals: full ROM Respiratory Common normals: normal respiratory effort Cardio Common normals: regular rate and regular rhythm GI Common normals: Normal to inspection, nondistended, normoactive bowel sounds present Common normals: no CVA tenderness Extremity Common normals: normal to inspection and full ROM Neuro Motor exam: strength 5/5 throughout Psych Common normals: mental status grossly normal, thought process normal, cooperative and affect normal DS: Data Data Completed and Pending Labs on day of discharge: Labs from last 24 hours 02/20/23 18:04 WBC 9.8 RBC 3.66 L Hgb 10.3 L Hct 31.1 L MCV 85.0 MCH 28.1 MCHC 33.1 RDW 14.2 Plt Count 205 MPV 11.1 Neut % (Auto) 74.2 Lymph % (Auto) 17.5 L [place] % (Auto) 6.3 Eos % (Auto) 1.2 Baso % (Auto) 0.4 Neut # (Auto) 7.2 H Lymph # (Auto) 1.7 [place] # (Auto) 0.6 Eos # (Auto) 0.1 Baso # (Auto) 0.0 Abs Immat Gran (auto) 0.04 H Imm/Tot Granulo (auto) 0.4 Discharge Plan Discharge Disposition: Home, Self-Care Condition: Good Assessment: VOICING NO CONCERNS, PERFORMING ADL'S WITHOUT PROBLEM, EATING AND ELIMINATING NORMALLY, NONFOCAL CLINICAL EXAM, VSS NORMAL Plan of Treatment: DISCHARGE AT 48 HOURS Discharge Medications: Continued metformin See Rx Instructions PO .COMPLEX Rx Instructions: 500 orally; Complete 14 mg iron- 400 mcg tablet 1 tab PO DAILY Discontinued ondansetron 4 mg tablet,disintegrating 4 mg PO TID-QID PRN (Reason: nausea and vomiting) Activity: resume usual activities as tolerated Diet: regular diet Patient Instructions: Vaginal Delivery (DC) Forms: Portal Instructions Follow Up Appointments: MAKE APPOINTMENT WITH CARE PROVIDER SIX WEEKS FROM DELIVERY Discharge location: HOME
--- NOTE | 2023-02-21 12:51 | PM.OBDS ---
DS: Providers Provider Date of admission: 02/19/23 04:55 Primary care physician: Non-Staff PhysicianMD Admitting clinician: Hernando Ward Consults: 02/19/23 Consult to Anesthesiology Routine Consulting Provider: Hospitalist Discharging clinician: Loida Francois DS: Diagnosis Discharge Diagnosis (1) Normal vaginal delivery: OB - DS: Summary Hospital Course Hospital Course: UNCOMPLICATED Time spent discussing smoking cessation with patient: 3 to 10 minutes Complications complications: none Delivery method: spontaneous vaginal delivery Gender: male Discharge plan: home Status at Discharge Functional status at discharge: independent ambulation Overall status at discharge: patient is back to baseline Time Spent with Patient Time attestation: Total time spent providing and/or coordinating discharge services: Time spent: less than 30 minutes Exam Constitutional Vital Signs, click to edit/add: Last Vital Signs Temp 98.1 F 02/21/23 08:45 Pulse 77 02/21/23 08:43 Resp 16 02/21/23 08:45 BP 118/74 02/21/23 08:43 Pulse Ox 97 02/19/23 19:31 O2 Del Method Room Air 02/21/23 00:24 Documenting provider has reviewed patient's vital signs: yes Common normals: no apparent distress, oriented x3, no limitations and healthy appearing HENMT Common normals: normocephalic and head/scalp atraumatic Eye Common normals: PERRL Pupil: accommodation reflex normal Neck & C-Spine Common normals: full ROM Respiratory Common normals: normal respiratory effort Cardio Common normals: regular rate and regular rhythm GI Common normals: Normal to inspection, nondistended, normoactive bowel sounds present Common normals: no CVA tenderness Extremity Common normals: normal to inspection and full ROM Neuro Motor exam: strength 5/5 throughout DS: Data Data Completed and Pending Labs on day of discharge: Labs from last 24 hours 02/20/23 18:04 WBC 9.8 RBC 3.66 L Hgb 10.3 L Hct 31.1 L MCV 85.0 MCH 28.1 MCHC 33.1 RDW 14.2 Plt Count 205 MPV 11.1 Neut % (Auto) 74.2 Lymph % (Auto) 17.5 L [place] % (Auto) 6.3 Eos % (Auto) 1.2 Baso % (Auto) 0.4 Neut # (Auto) 7.2 H Lymph # (Auto) 1.7 [place] # (Auto) 0.6 Eos # (Auto) 0.1 Baso # (Auto) 0.0 Abs Immat Gran (auto) 0.04 H Imm/Tot Granulo (auto) 0.4 Discharge Plan Discharge Disposition: Home, Self-Care Condition: Good Assessment: VOICING NO CONCERNS, PERFORMING ADL'S WITHOUT PROBLEM, EATING AND ELIMINATING NORMALLY, NONFOCAL CLINICAL EXAM, VSS NORMAL Plan of Treatment: DISCHARGE AT 48 HOURS Discharge Medications: Continued metformin See Rx Instructions PO .COMPLEX Rx Instructions: 500 orally; Complete 14 mg iron- 400 mcg tablet 1 tab PO DAILY Discontinued ondansetron 4 mg tablet,disintegrating 4 mg PO TID-QID PRN (Reason: nausea and vomiting) Activity: resume usual activities as tolerated Diet: regular diet Patient Instructions: Vaginal Delivery (DC) Forms: Portal Instructions Follow Up Appointments: MAKE APPOINTMENT WITH CARE PROVIDER SIX WEEKS FROM DELIVERY Discharge location: HOME
[2023-02-21] MEDS: ONDANSETRON 4 MG RAPDIS TABLET SL (14:35)
== END 2023-02-21 16:53 | disposition home or self-care (01) | DRG 807 ==
PROVIDERS: Admitting Provider Obstetrics & Gynecology; Visit Provider Obstetrics & Gynecology
DX: O99.284 Endocrine, nutritional and metabolic diseases complicating childbirth (principal); Z37.0 Single live birth; O70.1 Second degree perineal laceration during delivery; Z3A.37 37 weeks gestation of pregnancy; E28.2 Polycystic ovarian syndrome; O69.81X0 Labor and delivery complicated by cord around neck, without compression, not applicable or unspecified
CPT/HCPCS: 36415; 59050; 59410; 80307; 85025; 85027; 85461; 86850; 86900; 86901; 88307; 96374; 96375; 96376

== ENCOUNTER 2023-02-23 09:20 | Outpatient (RCR) | payer OTHER, SELFPAY ==
[2023-02-23 16:25] VITALS: BP 125/83; PULSE 71; RESP 16; TEMP 36.9
--- NOTE | 2023-02-23 16:42 | PC.NURSE ---
Beckie and Sp arrive for follow up with emperatriz Stone. Beckie tearful, all the memories really hit about his delivery Parents encouraged to express fears and concerns, questions about general delivery and NB care at delivery answered. Very thankful did well after rough delivery. Parents fears lessened with discussion and feel better after discussion. we never thought we would have him and are so grateful he is here Both appear to be doing well with role as parents and attend to baby closely.
== END 2023-02-23 16:00 | disposition home or self-care (01) ==
LOC: FBCO 09:20
PROVIDERS: Visit Provider Obstetrics & Gynecology
DX: Z39.2 Encounter for routine postpartum follow-up (principal)